=== PATIENT | female | born 1990 | race Caucasian/White ===

== ENCOUNTER → 2020-11-26 | Day surgery (SDC) | payer BC, OTHER ==
[2020-11-20 15:13] VITALS: BMI 20.9
[~2020-11-26] MED LIST: BUPIVACAINE HCL/EPINEPHRINE/PF 30 ML VIAL IJ ONE; BUPIVACAINE HCL/PF 0.25% (2.5MG/ML) 10 ML VIAL IJ ONE; BUPIVACAINE HCL/PF 0.5% (5MG/ML) 10 ML VIAL ONE; BUPIVACAINE LIPOSOME/PF (EXPAREL) 266 MG/20 ML VIAL ONE; DEXAMETHASONE SOD PHOSPHATE 4 MG/1 ML VIAL ONE; EPINEPHrine 1:1,000 1 MG/1 ML - 30ML VIAL (INJECTION) ONE; LACTATED RINGERS SOLUTION 1,000 ML IV SCH; MIDAZOLAM HCL 2 MG/2 ML SINGLE DOSE VIAL ONE; ONDANSETRON 4 MG/2 ML VIAL IVPUSH PRN; ONDANSETRON 4 MG/2 ML VIAL ONE; PROMETHAZINE HCL 25 MG/1 ML VIAL ONE; PROPOFOL 20 ML ONE; SEVOFLURANE 250 ML BTL ONE; SUCCINYLCHOLINE CHLORIDE 200 MG/10 ML SYRINGE ONE; TRANEXAMIC ACID 1000 MG/10 ML VIAL ONE; ceFAZolin SODIUM 1 GM VIAL ONE; oxyCODONE HCL 5 MG TABLET ONE; oxyCODONE HCL 5 MG TABLET PO ONE; oxyCODONE HCL 5 MG TABLET PO PRN
[2020-11-26] MEDS: PROMETHAZINE HCL 25 MG/1 ML VIAL IVPB PRN ×2 (10:07→10:39)
[2020-11-26 11:29] VITALS: TEMP 96.9
[2020-11-26 13:42] VITALS: BP 95/63; PULSE 67
== END | disposition home or self-care (01) ==
LOC: FASU 06:12
PROVIDERS: ATTEND Orthopaedic Surgery Sports Medicine
PROC: 0MRP47Z Replacement of Left Knee Bursa and Ligament with Autologous Tissue Substitute, Percutaneous Endoscopic Approach (ICD-10-PCS; 2020-11-26)
PROC: 0QH Lower Bones, Insertion (ICD-10-PCS; principal; 2020-11-26 08:34)
DX: S82.112A Displaced fracture of left tibial spine, initial encounter for closed fracture (principal); M65.9 Synovitis and tenosynovitis, unspecified; S83.512A Sprain of anterior cruciate ligament of left knee, initial encounter; X58.XXXA Exposure to other specified factors, initial encounter; Y93.9 Activity, unspecified; Y92.9 Unspecified place or not applicable
CPT/HCPCS: 29851; 29888; C1713; 73560-TC-LT-FY; 81025; 94760